=== PATIENT | female | born 1985 | race Caucasian/White ===

== ENCOUNTER 2017-03-09 14:48 | Emergency (ER) | payer OTHER ==
[~2017-03-09] VITALS: Ht 170.2 cm; Wt 136.1 kg
[~2017-03-09 14:48] MED LIST: AUGMENTIN 875875 MG PO; BACTRIM DS TAB1 EACH PO; CLONAZEPAM 1 MG1 M1 PO; CYCLOBENZAPRINE; CYMBALTA20 MG PO; CYMBALTA60 MG PO; FLEXERIL PO; HUMIRA40 MG/0.8 SQ; HYDROCODONE-AP1 EAC6 PO; IBUPROFEN 800800 M1 PO; KLONOPIN1 MG PO; METHOTREXATE 22.5 MG PO; MOBIC7.5 MG PO; NOHOMEMEDICATIONS; NORCO 10-325 T1 EACH PO; NORCO 5-325 TA1 EACH PO; PAXIL10 MG PO; PERCOCET PO; PREDNISONE 10 M10 MG PO; ROBAXIN 750 MG750 MG PO; VICODIN; VICODIN 5-5001 EACH PO; VISTARIL 25 MG25 M1 PO
[2017-03-09] MEDS ORDERED: REMICADE 1100 MG/VIA IV (15:11)
[2017-03-09] MEDS ORDERED: BUSPIRONE HCL10 MG PO (15:13)
[2017-03-09] MEDS ORDERED: TRAZODONE HCL100 MG PO (15:13)
[2017-03-09 15:45] LABS: INFLUENZA A ANTIGEN None Detected (None Detect); INFLUENZA B ANTIGEN None Detected (None Detect)
[2017-03-09] MEDS ORDERED: TESSALON PERLE100 MG PO (16:00)
[2017-03-09] MEDS ORDERED: PROAIR HFA8.5 GM INH (16:00)
[2017-03-09 16:13] VITALS: BP 111/74
== END 2017-03-09 16:14 | disposition home or self-care (01) ==
LOC: M.ERS 14:48
PROVIDERS: Nurse Practitioner Family
DX: J06.9 Acute upper respiratory infection, unspecified (principal); F41.9 Anxiety disorder, unspecified; M06.9 Rheumatoid arthritis, unspecified

== ENCOUNTER 2018-01-18 12:52 | Emergency (ER) | payer OTHER ==
[~2018-01-18] VITALS: Ht 167.6 cm; Wt 136.1 kg
[~2018-01-18 12:52] MED LIST changes: +BUSPIRONE HCL10 MG PO; +PROAIR HFA8.5 GM INH; +REMICADE 1100 MG/VIA IV; +TESSALON PERLE100 MG PO; +TRAZODONE HCL100 MG PO
[2018-01-18] MEDS ORDERED: FOLIC ACID1 MG PO (13:22)
[2018-01-18 14:45] LABS: ABSOLUTE BASOPHILS 0.1 thou/uL (0.0-0.2); ABSOLUTE EOSINOPHILS 0.2 thou/uL (0.0-0.7); ABSOLUTE LYMPHOCYTES 2.5 thou/uL (0.8-5.3); ABSOLUTE MONOCYTES 0.4 thou/uL (0.0-1.2); ABSOLUTE NEUTROPHILS 5.4 thou/uL (1.6-8.1); EOSINOPHILS 2.8 %; HEMATOCRIT 39.7 % (37.0-47.0); HEMOGLOBIN 13.4 gm/dL (12.0-15.0); LYMPHOCYTES 28.8 %; MCH 29.8 pg (26.0-34.0); MCHC 33.8 g/dL (28.0-37.0); MCV 88.1 fL (80.0-100.0); MONOCYTES 5.1 %; MPV 9.1 fl. (7.2-11.1); NUCLEATED RBCS 0 /100WBC; PLATELET COUNT* 267 thou/uL (150-400); POLYS 62.3 %; RBC 4.51 mil/uL (4.20-5.00); RDW-CV 13.9 % (10.5-14.5); WBC 8.7 thou/uL (4.0-11.0)
[2018-01-18 14:53] LABS: ANION GAP 9 mmol/L (7-16); BUN 12 mg/dL (7-18); CALCIUM 8.6 mg/dL (8.5-10.1); CHLORIDE 103 mmol/L (98-107); CO2 27 mmol/L (21-32); CREATININE 0.8 mg/dL (0.6-1.3); GLUCOSE 84 mg/dL (70-99); POTASSIUM 4.1 mmol/L (3.5-5.1); SODIUM 139 mmol/L (136-145)
[2018-01-18 15:00] LABS: ALBUMIN 3.4 g/dL (3.4-5.0); ALKALINE PHOSPHATASE 74 U/L (46-116); SGOT 44 U/L (15-37); SGPT 117 U/L (30-65); TOTAL PROTEIN 7.2 g/dL (6.4-8.2); TROPONIN-I LEVEL <0.06 ng/mL (<0.06)
[2018-01-18 15:52] LABS: ESR (SEDRATE) 22 mm/hr (0-20)
[2018-01-18] MEDS ORDERED: TRAMADOL 50 MG50 MG PO ×2 (16:58→17:00)
[2018-01-18 17:10] VITALS: BP 140/78
--- NOTE | 2018-01-19 14:20 | EKG ---
[place] [address] ELECTROCARDIOGRAM REPORT Name: CELESTINA MAY Room: [facility]#: [id number] Admission: 01/18/18 Attend Phys: Discharge: 01/18/18 Date of : 83 Report #: [id number] THIS REPORT FOR: //name// [facility] ED Test Date: 2018-01-18 Test Time: 14:13:53 Pat Name: CELESTINA MAY Department: Room: Gender: F C.O.D. Biller: Jessie SHAH : 1985 Requested By: Ana María Lamas Order Number: [id number] MD: Samuel Ty Measurements Intervals [place] Rate: 83 P: 41 SC: 148 QRS: 27 QRSD: 93 T: 12 QT: 382 QTc: 452 Interpretive Statements Sinus rhythm Low voltage, precordial leads No previous ECG available for comparison Electronically Signed On 01-19-2018 14:20:03 [employer] by Samuel Ty [email or web address] <ELECTRONICALLY SIGNED> By: Samuel Ty MD, [facility] 01/19/18 1420 1413 1413 Samuel Ty MD, FACC /EPI
== END 2018-01-18 17:13 | disposition home or self-care (01) ==
LOC: M.ERS 12:52
PROVIDERS: Nurse Practitioner Family
DX: R60.0 Localized edema (principal); M25.571 Pain in right ankle and joints of right foot; M25.572 Pain in left ankle and joints of left foot; R70.0 Elevated erythrocyte sedimentation rate; F41.9 Anxiety disorder, unspecified; M06.9 Rheumatoid arthritis, unspecified; G89.29 Other chronic pain; M54.6 Pain in thoracic spine

== ENCOUNTER 2018-04-20 14:50 | Emergency (ER) | payer OTHER ==
[~2018-04-20] VITALS: Ht 167.6 cm; Wt 136.1 kg
[~2018-04-20 14:50] MED LIST changes: +FOLIC ACID1 MG PO; +TRAMADOL 50 MG50 MG PO
[2018-04-20] MEDS ORDERED: ACTEMRA400 MG/20 IV (15:04)
[2018-04-20] MEDS ORDERED: VENTOLIN HFA 1818 GM INH (16:00)
[2018-04-20] MEDS ORDERED: PREDNISONE50 MG PO (16:00)
[2018-04-20] MEDS ORDERED: ZPAK PO (16:00)
[2018-04-20] MEDS ORDERED: ZOFRAN ODT4 MG PO (16:03)
[2018-04-20 16:12] VITALS: BP 93/64
== END 2018-04-20 16:12 | disposition home or self-care (01) ==
LOC: M.ERS 14:50
DX: J40 Bronchitis, not specified as acute or chronic (principal); F41.9 Anxiety disorder, unspecified; M54.6 Pain in thoracic spine; G89.29 Other chronic pain; M06.9 Rheumatoid arthritis, unspecified; M25.50 Pain in unspecified joint

== ENCOUNTER 2018-11-07 19:11 | Emergency (ER) | payer OTHER ==
[~2018-11-07] VITALS: Ht 170.2 cm; Wt 136.1 kg
[~2018-11-07 19:11] MED LIST changes: +ACTEMRA400 MG/20 IV; +PREDNISONE50 MG PO; +VENTOLIN HFA 1818 GM INH; +ZOFRAN ODT4 MG PO; +ZPAK PO
[2018-11-07 19:37] LABS: URINE BILIRUBIN NEGATIVE (Negative); URINE BLOOD NEGATIVE (Negative); URINE CLARITY CLEAR; URINE COLOR YELLOW; URINE GLUCOSE-RANDOM NEGATIVE (Negative); URINE KETONES NEGATIVE (Negative); URINE LEUKOCYTES-REFLEX 1+ (Negative); URINE NITRITE-REFLEX NEGATIVE (Negative); URINE PROTEIN NEGATIVE (Negative); URINE SPECIFIC GRAVITY >= 1.030 (1.005-1.030); URINE UROBILINOGEN 0.2 E.U./dl (0.2-1.0)
[2018-11-07 19:47] LABS: SQUAMOUS 0-3 Few /LPF (0-3); URINE RBC 0-2 Rare /HPF (0-2); URINE WBC-REFLEX 6-15 Few /HPF (0-5)
[2018-11-07 19:48] LABS: CASTS None Seen /LPF (None Seen); CRYSTALS None Seen /LPF (None Seen); MUCUS 0-3 Light strn/LPF (None Seen)
[2018-11-07 19:49] LABS: ABSOLUTE BASOPHILS 0.1 thou/uL (0.0-0.2); ABSOLUTE EOSINOPHILS 0.5 thou/uL (0.0-0.7); ABSOLUTE LYMPHOCYTES 2.9 thou/uL (0.8-5.3); ABSOLUTE MONOCYTES 0.5 thou/uL (0.0-1.2); BASOPHILS 0.8 %; EOSINOPHILS 5.7 %; HEMATOCRIT 42.6 % (37.0-47.0); HEMOGLOBIN 14.5 gm/dL (12.0-15.0); LYMPHOCYTES 36.2 %; MCH 30.9 pg (26.0-34.0); MCHC 33.9 g/dL (28.0-37.0); MCV 91.2 fL (80.0-100.0); MONOCYTES 6.7 %; MPV 9.4 fl. (7.2-11.1); NUCLEATED RBCS 0 /100WBC; PLATELET COUNT* 230 thou/uL (150-400); POLYS 50.6 %; RBC 4.67 mil/uL (4.20-5.00); RDW-CV 13.6 % (10.5-14.5)
[2018-11-07 19:57] LABS: CALCIUM 8.9 mg/dL (8.5-10.1); POTASSIUM 4.2 mmol/L (3.5-5.1)
[2018-11-07 20:01] LABS: TOTAL BILIRUBIN 1.2 mg/dL (<0.1-1.0); TOTAL PROTEIN 7.2 g/dL (6.4-8.2)
[2018-11-07] MEDS ORDERED: MACROBID 100 M100 M1 PO (20:17)
[2018-11-07] MEDS ORDERED: TRAMADOL 50 MG50 MG PO (20:17)
[2018-11-07 20:29] VITALS: BP 123/84
== END 2018-11-07 20:20 | disposition home or self-care (01) ==
LOC: M.ERS 19:11
PROVIDERS: Emergency Medicine
DX: N39.0 Urinary tract infection, site not specified (principal); F41.9 Anxiety disorder, unspecified; M54.6 Pain in thoracic spine; G89.29 Other chronic pain; M06.9 Rheumatoid arthritis, unspecified

== ENCOUNTER 2018-12-19 12:32 | Emergency (ER) | payer OTHER ==
[~2018-12-19] VITALS: Ht 170.2 cm; Wt 136.1 kg
[~2018-12-19 12:32] MED LIST changes: +MACROBID 100 M100 M1 PO
[2018-12-19 12:37] VITALS: BP 115/77
[2018-12-19] MEDS ORDERED: RITUXAN HY1400 MG/11 (12:41)
[2018-12-19] MEDS ORDERED: TYLENOL WITH CO1 TA1 PO (12:53)
[2018-12-19] MEDS ORDERED: AMOXICILLIN 50500 M1 PO (12:53)
[2018-12-19] MEDS ORDERED: PROMETHAZINE V120 ML PO (12:53)
== END 2018-12-19 12:56 | disposition home or self-care (01) ==
LOC: M.ERS 12:32
DX: J02.9 Acute pharyngitis, unspecified (principal); F41.9 Anxiety disorder, unspecified; G89.29 Other chronic pain; M54.6 Pain in thoracic spine; M06.9 Rheumatoid arthritis, unspecified

== ENCOUNTER 2018-12-20 23:17 | Emergency (ER) | payer OTHER ==
[~2018-12-20] VITALS: Ht 167.6 cm; Wt 136.1 kg
[~2018-12-20 23:17] MED LIST changes: +AMOXICILLIN 50500 M1 PO; +PROMETHAZINE V120 ML PO; +RITUXAN HY1400 MG/11; +TYLENOL WITH CO1 TA1 PO
[2018-12-21 00:39] VITALS: BP 128/88
== END 2018-12-21 00:41 | disposition home or self-care (01) ==
LOC: M.ERS 23:17
DX: J06.9 Acute upper respiratory infection, unspecified (principal); F41.9 Anxiety disorder, unspecified; G89.29 Other chronic pain; M54.6 Pain in thoracic spine; M06.9 Rheumatoid arthritis, unspecified

== ENCOUNTER 2019-01-26 17:14 | Emergency (ER) | payer OTHER ==
[~2019-01-26] VITALS: Ht 167.6 cm; Wt 133.8 kg
[2019-01-26 19:02] LABS: ABSOLUTE BASOPHILS 0.1 thou/uL (0.0-0.2); ABSOLUTE EOSINOPHILS 0.5 thou/uL (0.0-0.7); ABSOLUTE LYMPHOCYTES 2.1 thou/uL (0.8-5.3); ABSOLUTE MONOCYTES 0.5 thou/uL (0.0-1.2); ABSOLUTE NEUTROPHILS 4.7 thou/uL (1.6-8.1); BASOPHILS 1.2 %; EOSINOPHILS 5.8 %; HEMATOCRIT 39.3 % (37.0-47.0); HEMOGLOBIN 13.6 gm/dL (12.0-15.0); LYMPHOCYTES 26.6 %; MCH 30.6 pg (26.0-34.0); MCHC 34.7 g/dL (28.0-37.0); MCV 88.2 fL (80.0-100.0); MONOCYTES 5.8 %; MPV 9.4 fl. (7.2-11.1); NUCLEATED RBCS 0 /100WBC; PLATELET COUNT* 315 thou/uL (150-400); POLYS 60.6 %; RBC 4.45 mil/uL (4.20-5.00); RDW-CV 13.6 % (10.5-14.5); WBC 7.8 thou/uL (4.0-11.0)
[2019-01-26 19:08] LABS: CALCIUM 8.5 mg/dL (8.5-10.1); CREATININE 0.9 mg/dL (0.6-1.3); POTASSIUM 3.4 mmol/L (3.5-5.1)
[2019-01-26 19:18] LABS: ALBUMIN 3.7 g/dL (3.4-5.0); TOTAL BILIRUBIN 0.9 mg/dL (<0.1-1.0); TOTAL PROTEIN 7.3 g/dL (6.4-8.2)
[2019-01-26 22:25] VITALS: BP 110/60
--- NOTE | 2019-01-27 09:53 | EKG ---
[place] [address] ELECTROCARDIOGRAM REPORT Name: CELESTINA MAY Room: [facility]#: [id number] Admission: 01/26/19 Attend Phys: Discharge: 01/26/19 Date of : 83 Report #: [id number] THIS REPORT FOR: //name// [facility] ED Test Date: 2019-01-26 Test Time: 18:20:56 Pat Name: CELESTINA MAY Department: Room: Gender: F Spa Manager: : 1985 Requested By: Douglas Blakely Order Number: [id number] MD: Samuel Ty Measurements Intervals [place] Rate: 82 P: 33 WA: 135 QRS: 17 QRSD: 86 T: 1 QT: 372 QTc: 435 Interpretive Statements Sinus rhythm Compared to ECG 01/18/2018 14:13:53 No significant changes Electronically Signed On 01-27-2019 9:52:59 [employer] by Samuel Ty [email or web address] <ELECTRONICALLY SIGNED> By: Samuel Ty MD, [facility] 01/27/19 0952 1820 182 Samuel Ty MD, FACC /EPI
== END 2019-01-26 22:25 | disposition home or self-care (01) ==
LOC: M.ERS 17:14
PROVIDERS: Emergency Medicine Emergency Medical Services
DX: R07.89 Other chest pain (principal); R05 Cough; R09.81 Nasal congestion; F41.9 Anxiety disorder, unspecified; G89.29 Other chronic pain; M06.9 Rheumatoid arthritis, unspecified

== ENCOUNTER 2019-04-14 11:31 | Emergency (ER) | payer OTHER ==
[~2019-04-14] VITALS: Ht 167.6 cm; Wt 122.5 kg
[2019-04-14 12:15] LABS: INFLUENZA A ANTIGEN Negative (Negative)
[2019-04-14] MEDS ORDERED: TORADOL 10 MG T10 MG PO (13:11)
[2019-04-14] MEDS ORDERED: DIAZEPAM 5 MG5 MG PO (13:11)
[2019-04-14 13:29] VITALS: BP 122/75
== END 2019-04-14 13:30 | disposition home or self-care (01) ==
LOC: M.ERS 11:31
PROVIDERS: Personal Emergency Response Attendant
DX: J10.1 Influenza due to other identified influenza virus with other respiratory manifestations (principal); R11.2 Nausea with vomiting, unspecified; F41.9 Anxiety disorder, unspecified; M06.9 Rheumatoid arthritis, unspecified; G89.29 Other chronic pain; M54.6 Pain in thoracic spine; Z98.84 Bariatric surgery status

== ENCOUNTER 2019-04-17 15:35 | Emergency (ER) | payer OTHER ==
[~2019-04-17] VITALS: Ht 172.7 cm; Wt 104.3 kg
[~2019-04-17 15:35] MED LIST changes: +DIAZEPAM 5 MG5 MG PO; +TORADOL 10 MG T10 MG PO
[2019-04-17 16:03] LABS: URINE BLOOD 3+ (Negative); URINE CLARITY CLOUDY; URINE COLOR DARK YELLOW; URINE GLUCOSE-RANDOM NEGATIVE (Negative); URINE KETONES 2+ (Negative); URINE PROTEIN 1+ (Negative); URINE SPECIFIC GRAVITY >= 1.030 (1.005-1.030)
[2019-04-17 16:04] LABS: URINE BILIRUBIN 1+ (Negative); URINE LEUKOCYTES-REFLEX 2+ (Negative); URINE NITRITE-REFLEX POSITIVE (Negative)
[2019-04-17 16:16] LABS: ABSOLUTE LYMPHOCYTES 1.5 thou/uL (0.8-5.3); ABSOLUTE MONOCYTES 0.3 thou/uL (0.0-1.2); ABSOLUTE NEUTROPHILS 1.7 thou/uL (1.6-8.1); BASOPHILS 0.7 %; EOSINOPHILS 0.9 %; HEMATOCRIT 39.9 % (37.0-47.0); LYMPHOCYTES 42.3 %; MCH 30.2 pg (26.0-34.0); MCHC 35.2 g/dL (28.0-37.0); MCV 85.9 fL (80.0-100.0); MONOCYTES 7.6 %; MPV 10.6 fl. (7.2-11.1); NUCLEATED RBCS 0 /100WBC; PLATELET COUNT* 177 thou/uL (150-400); POLYS 48.5 %; RBC 4.64 mil/uL (4.20-5.00); RDW-CV 14.3 % (10.5-14.5); WBC 3.4 thou/uL (4.0-11.0)
[2019-04-17 16:22] LABS: MUCUS >6 Heavy strn/LPF (None Seen); SQUAMOUS >10 Many /LPF (0-3)
[2019-04-17 16:23] LABS: FINE GRANULAR CASTS 0-3 Few /LPF (None Seen); HYALINE CASTS 4-10 Moderate /LPF (None Seen); WBC CLUMPS Few (None Seen)
[2019-04-17 16:24] LABS: AMORPHOUS URATES Few /LPF (None Seen); URINE RBC >20 Many /HPF (0-2)
[2019-04-17 16:27] LABS: CALCIUM 7.4 mg/dL (8.5-10.1); CREATININE 0.8 mg/dL (0.6-1.3); MAGNESIUM 1.8 mg/dL (1.8-2.4); POTASSIUM 3.3 mmol/L (3.5-5.1)
[2019-04-17] MEDS ORDERED: KEFLEX500 M1 PO (17:21)
[2019-04-17] MEDS ORDERED: SPACE CHAMBER1 EACH INH (17:21)
[2019-04-17] MEDS ORDERED: PROAIR HFA8.5 GM INH (17:21)
[2019-04-17] MEDS ORDERED: TESSALON PERLE100 MG PO (17:21)
[2019-04-17] MEDS ORDERED: PREDNISONE 20 M20 MG PO (17:21)
[2019-04-17 18:13] VITALS: BP 128/72
== END 2019-04-17 18:15 | disposition home or self-care (01) ==
LOC: M.ERS 15:35
PROVIDERS: Nurse Practitioner Psychiatric/Mental Health
DX: J20.1 Acute bronchitis due to Hemophilus influenzae (principal); N39.0 Urinary tract infection, site not specified; R42 Dizziness and giddiness; F41.9 Anxiety disorder, unspecified; G89.29 Other chronic pain; M54.6 Pain in thoracic spine; M06.9 Rheumatoid arthritis, unspecified

== ENCOUNTER 2020-07-29 17:49 | Emergency (ER) | payer OTHER ==
[~2020-07-29] VITALS: Ht 167.6 cm; Wt 108.9 kg
[~2020-07-29 17:49] MED LIST changes: +KEFLEX500 M1 PO; +PREDNISONE 20 M20 MG PO; +SPACE CHAMBER1 EACH INH
[2020-07-29] MEDS ORDERED: SIMPONI100 MG/1 M SUBQ (18:10)
[2020-07-29 18:12] LABS: URINE BILIRUBIN NEGATIVE (Negative); URINE BLOOD NEGATIVE (Negative); URINE CLARITY CLEAR; URINE COLOR YELLOW; URINE GLUCOSE-RANDOM NEGATIVE (Negative); URINE KETONES NEGATIVE (Negative); URINE LEUKOCYTES-REFLEX 1+ (Negative); URINE PROTEIN NEGATIVE (Negative); URINE SPECIFIC GRAVITY >= 1.030 (1.005-1.030); URINE UROBILINOGEN 0.2 E.U./dl (0.2-1.0)
[2020-07-29 18:14] LABS: URINE NITRITE-REFLEX POSITIVE (Negative)
[2020-07-29 18:19] LABS: SQUAMOUS 4-10 Moderate /LPF (0-3)
[2020-07-29 18:20] LABS: CASTS None Seen /LPF (None Seen); CRYSTALS None Seen /LPF (None Seen); URINE RBC 0-2 Rare /HPF (0-2); URINE WBC-REFLEX 6-15 Few /HPF (0-5)
[2020-07-29 18:26] LABS: ABSOLUTE EOSINOPHILS 0.3 thou/uL (0.0-0.7); ABSOLUTE LYMPHOCYTES 3.3 thou/uL (0.8-5.3); ABSOLUTE MONOCYTES 0.6 thou/uL (0.0-1.2); ABSOLUTE NEUTROPHILS 7.8 thou/uL (1.6-8.1); BASOPHILS 0.2 %; EOSINOPHILS 2.3 %; HEMATOCRIT 38.8 % (37.0-47.0); HEMOGLOBIN 13.2 gm/dL (12.0-15.0); LYMPHOCYTES 27.7 %; MCH 30.2 pg (26.0-34.0); MONOCYTES 4.9 %; NUCLEATED RBCS 0 /100WBC; PLATELET COUNT* 291 thou/uL (150-400); POLYS 64.9 %; RBC 4.36 mil/uL (4.20-5.00); RDW-CV 13.8 % (10.5-14.5)
[2020-07-29 18:34] LABS: CALCIUM 8.7 mg/dL (8.5-10.1); CREATININE 0.7 mg/dL (0.6-1.3); POTASSIUM 3.8 mmol/L (3.5-5.1)
[2020-07-29 18:39] LABS: ALBUMIN 3.8 g/dL (3.4-5.0); TOTAL BILIRUBIN 0.9 mg/dL (<0.1-1.0); TOTAL PROTEIN 7.3 g/dL (6.4-8.2)
[2020-07-29] MEDS ORDERED: CEPHALEXIN500 MG PO ×2 (19:38→19:51)
[2020-07-29 19:55] VITALS: BP 104/77
== END 2020-07-29 19:55 | disposition home or self-care (01) ==
LOC: M.ERS 17:49
PROVIDERS: Physician Assistant
DX: O20.0 Threatened abortion (principal); O23.41 Unspecified infection of urinary tract in pregnancy, first trimester; M06.9 Rheumatoid arthritis, unspecified; Z3A.01 Less than 8 weeks gestation of pregnancy; Z88.8 Allergy status to other drugs, medicaments and biological substances